=== PATIENT | female | born 1975 | race Two or more races ===

== ENCOUNTER 2021-09-23 15:09 | Outpatient (REF) | payer OTHER, MEDICAID, SELFPAY ==
[2021-09-25 08:42] LABS: Transglutaminase Ab IgG <1.0 U/mL; Transglutaminase IgA <1.0 U/mL
== END 2021-09-23 15:10 | disposition home or self-care (01) ==
LOC: HO.LAB 15:09
PROVIDERS: PCP Internal Medicine; Visit Provider Nurse Practitioner Family
DX: Z01.818 Encounter for other preprocedural examination (principal); R10.9 Unspecified abdominal pain; K21.9 Gastro-esophageal reflux disease without esophagitis
CPT/HCPCS: 36415; 86364

== ENCOUNTER 2022-01-18 09:15 | Day surgery (SDC) | payer OTHER, MEDICAID, SELFPAY ==
[2022-01-12 14:01] VITALS: BMI 52.4
[2022-01-18 09:32] VITALS: BMI 55.8
--- NOTE | 2022-01-18 09:36 | MHC.SHP ---
Pre-Procedural Eval Section A Date of Service: 01/18/22 Section B Chief Complaint: reflux disease,screening Relevant Family History (Specify if Yes): No Relevant Social History: None Present Medications: see Short Stay Collaborative assessment Medical History: Significant History (GERD (gastroesophageal reflux disease) ELEN on CPAP) History of Previous Operations: Relevant previous surgery/procedure and date(s) (hysterectomy) Allergies: Allergies Allergy/AdvReac Type Severity Reaction Status Date / Time adhesive Allergy Mild Unknown Verified 09/23/21 15:20 cat dander Allergy Mild Unknown Verified 09/23/21 15:20 latex Allergy Mild Unknown Verified 09/23/21 15:20 lisinopril Allergy Mild Unknown Verified 09/23/21 15:20 Review of Systems Sugical H&P ROS: Negative: Constitution, Cardiovascular, Respiratory, Neurological, Psychiatric, Hem-Onc, Allergic/Immunologic, Gastrointestinal, Genitourinary, Musculoskeletal, Integumentary, Endocrine and Eyes/Ears/Nose/Throat Exam Surgical H&P Exam: Normal: HEENT, Normal: Heart, Normal: Lungs, Normal: Extremities, Normal: Abdomen, Normal: Skin and Normal: Neurological Plan Diagnosis/Plan: Unchanged I have reviewed the history and physical and performed a pertinent physical examination on my patient. No changes have occurred unless specified.
[2022-01-18] MEDS: Lactated Ringers 1,000 ML 50 ML IVCONT (10:08)
[2022-01-18 10:12] VITALS: BP 137/82; PULSE 80; RESP 20; TEMP 36.4; O2SAT 97
--- NOTE | 2022-01-18 10:12 | HO.ANESPROP2 ---
HPI - Anesthesia Eval Consult details Narrative: 46 F for EGD and colonoscopy COUNT INCLUDES THE [facility] Active Problems Active Problems: All Active Problems (Updated 01/17/22 @ 12:27 by Desi Iglesias RN) GERD (gastroesophageal reflux disease) (Acute) Past Medical History Medical History GERD (gastroesophageal reflux disease) ELEN on CPAP Functional capacity: independent ambulation Family History Family History (Updated 09/23/21 @ 15:23 by NIK Manjarrez) Mother Uterine cancer HTN (hypertension) Diabetes Premature osteoporosis Father HTN (hypertension) Maternal Grandmother Diabetes High cholesterol Uterine cancer Maternal Grandfather Heart disease HTN (hypertension) Paternal Grandmother Pancreatic cancer Paternal Grandfather Prostate cancer Family history of problems with anesthesia: No Surgical History Surgical History History of esophagogastroduodenoscopy (EGD) History of hysterectomy (~2015) Hx of colonoscopy History of Problems with Anesthesia: No Social History Social History Patient Tobacco Use Status: Never used Tobacco Meds Allergies Allergy/AdvReac Type Severity Reaction Status Date / Time adhesive Allergy Mild Unknown Verified 09/23/21 15:20 cat dander Allergy Mild Unknown Verified 09/23/21 15:20 latex Allergy Mild Unknown Verified 09/23/21 15:20 lisinopril Allergy Mild Unknown Verified 09/23/21 15:20 Active Medications: Current Medications Lactated Ringer's (Lr) 1,000 mls @ 50 mls/hr IVCONT .Q20H PAULINO Last Admin: 01/18/22 10:08 Dose: 50 mls/hr Home Medications Medication Instructions Recorded Confirmed Last Taken Type amlodipine 2.5 mg tablet 2.5 mg PO DAILY 09/23/21 01/18/22 08:00 History hydrochlorothiazide 25 mg tablet 25 mg PO DAILY 09/23/21 Unknown History Exam Exam Date and Time: January 18, 2022 1012 Height,Weight and Vital Signs: Height 5 ft 6 in Weight 156.943 kg Airway Mallampati Class: III TM Dist: >3cm Neck ROM: Full Loose/Missing/Broken Teeth: Yes ([place] and fillings ) Heart: S1,S2 Lungs: b/l breath sounds Assessment and Plan Assessment Anesthesia Assessment: Anesthesia Plan Discussed and Chart Reviewed Final Anesthetic Review Family History of Problems with Anesthesia: No History of Problems with Anesthesia: No NPO: Yes ASA Class: III Final Preanesthetic Review: Meds/Allgs Chart Reviewed, Consent Obtained/Reviewed and Anes Risks/Benef Reviewed Patient Risk: High Procedure Risk: Intermediate Anesthetic Plan Anesthetic Plan: MAC: Disposition: Standard PACU
--- NOTE | 2022-01-18 10:39 | W.PM.OPN ---
Operative Note Operative Note Date of Service: 01/18/22 Narrative: Operative Information Procedure Description: EGD, Colonoscopy Indication: GERD, screening Anesthesia: MAC FLEXIBLE TRANSORAL UPPER GASTROINTESTINAL ENDOSCOPY AND COLONOSCOPY PROCEDURE NOTE UPPER ENDOSCOPY Consent: Indications for the procedure and potential complications of bleeding, perforation, reaction to medications and missed diagnosis were discussed with the patient and informed consent was obtained. Instrument: Olympus GIF H 190 J mid size upper endoscope Monitoring: Vital signs and clinical assessment, continuous EKG monitoring, Pulse oximetry, Carbon Dioxide monitoring and blood pressure monitoring were done throughout the procedure. Procedure: The patient was placed in the left lateral decubitis position and pre-procedure medications were administered and a bite block was placed. The endoscope was inserted into the mouth and advanced under direct vision to the third part of duodenum. A careful inspection was made as the upper endoscope was withdrawn including a retroflexed examination of the proximal stomach; Findings and interventions are described below. Findings: Larynx:normal Esophagus: GE junction at 38 cm, diaphragm hiatus at 38 cm, mild esophagitis at GEJ, biopsy taken Stomach: Normal mucosa. Biopsies were obtained. Grade 2 flap valve on retroflexed examination of the cardia. Duodenum: Mild bulbar duodenitis, bx taken Intervention: Biopsies as noted above COLONOSCOPY Instrument: Olympus variable stiffness adult scope 190L Colonoscopy Monitoring: Vital signs and clinical assessment, continuous EKG monitoring, Pulse oximetry, Carbon Dioxide monitoring and blood pressure monitoring were done throughout the procedure. Colon withdrawal time was 6 minutes. Procedure: The patient was placed in the left lateral decubitis position and pre-procedure medications were administered. After a digital rectal examination of the ano-rectum, the video colonoscope was inserted into the rectum and advanced through the colon to the cecum/TI. The colonoscope was slowly withdrawn in a retrograde panoramic fashion and the colon mucosa was carefully examined including a retroflexed view of the rectum. Findings and interventions are described below. Procedure Difficulty: easy Findings: Terminal Ileum-normal Right sided retroflexion-normal Cecum:normal Ascending Colon: normal Transverse Colon -normal Descending Colon:normal Sigmoid Colon: normal Rectum: Retroflexion with small internal hemorrhoids, grade I Anorectum - normal Colon preparation: [place] Bowel Preparation Scale Right colon; 2 Transverse colon: 2 Left colon; 2 (0 = Unprepared colon segment with mucosa not seen due to solid stool that cannot be cleared. 1 = Portion of mucosa of the colon segment seen, but other areas of the colon segment not well seen due to staining, residual stool and/or opaque liquid. 2 = Minor amount of residual staining, small fragments of stool and/or opaque liquid, but mucosa of colon segment seen well. 3 = Entire mucosa of colon segment seen well with no residual staining, small fragments of stool or opaque liquid) Impression and Post Procedure Diagnosis: Endoscopy Findings: mild esophagitis mild duodenitis Colonoscopy Findings: internal hemorrhoids Plan: Await Pathology results Repeat Colonoscopy in 10 years or earlier if clinically indicated High fiber diet leaflet avoid straining at stool, epsom salts and sitz bath, anusol supps or cream If not taking PPI or H2 yolie may benefit from use, weight loss Above findings were reviewed with the patient and relevant handouts were provided if indicated.
[2022-01-18 11:31] VITALS: BP 130/83; PULSE 81; RESP 22; TEMP 36.6; O2SAT 98
[2022-01-18 11:46] VITALS: BP 120/76; PULSE 82; RESP 20; TEMP 36.8; O2SAT 98
== END 2022-01-18 12:23 | disposition home or self-care (01) ==
PROVIDERS: PCP Internal Medicine; Visit Provider Internal Medicine Gastroenterology
PROC: (CPT 45380; principal; 2022-01-18 10:50)
DX: Z12.11 Encounter for screening for malignant neoplasm of colon (principal); K64.0 First degree hemorrhoids; K59.00 Constipation, unspecified; K21.9 Gastro-esophageal reflux disease without esophagitis; K20.80 Other esophagitis without bleeding; K29.80 Duodenitis without bleeding; G47.33 Obstructive sleep apnea (adult) (pediatric); Z99.89 Dependence on other enabling machines and devices; Z88.8 Allergy status to other drugs, medicaments and biological substances; Z91.040 Latex allergy status; K44.9 Diaphragmatic hernia without obstruction or gangrene; Z79.899 Other long term (current) drug therapy
CPT/HCPCS: 45380; 43239; 88305; 88342; J2250

== ENCOUNTER 2022-02-07 15:59 | Outpatient (REF) | payer OTHER, MEDICAID, SELFPAY ==
[2022-02-08 11:20] LABS: H Pylori Breath Test Negative (Negative)
== END 2022-02-07 16:00 | disposition home or self-care (01) ==
LOC: HO.LNP 15:59
PROVIDERS: Visit Provider Nurse Practitioner Family
DX: K21.9 Gastro-esophageal reflux disease without esophagitis (principal); Z11.0 Encounter for screening for intestinal infectious diseases
CPT/HCPCS: 83013